=== PATIENT | female | born 1955 | race Caucasian/White ===

== ENCOUNTER 2018-08-28 06:25 | Day surgery (SDC) | payer OTHER ==
[2018-08-20 14:01] VITALS: BMI 25.5
--- NOTE | 2018-08-22 09:25 | HP ---
Admitting History and Physical - Primary Care Physician PCP: Valente Shoemaker - Admission Chief Complaint: Left breast cancer History of Present Illness: 63 year old postmenapausal female who was found to have an abnormality on screening mammogram 06/2018. A central left density persisted on compression views . US showed 5x5x3 mm irregular density left 8:00 . Us guided core BX at [facility] showed infiltrating ductal carcinoma and DCIS ER+/MT+ Her2 negative . Breast MRI right breast birad 1 , newly diagnosed left breast cancer. 07/2018. History Source: Patient Limitations to Obtaining History: No Limitations - Past Medical History Cardiovascular: Yes: HTN, Hyperlipdemia ...: No - Past Surgical History Past Surgical History: Yes: Cholecystectomy (lap 2008), Hernia Repair (ventral umbilical with mesh 1993) - Advance Directives Advance Directives: Yes: Living Will, Health Care Proxy - Smoking History Smoking history: Never smoked Have you smoked in the past 12 months: No - Alcohol/Substance Use Hx Alcohol Use: Yes (SOCIALLY) Home Medications - Allergies Allergies/Adverse Reactions: Allergies Allergy/AdvReac Type Severity Reaction Status Date / Time amoxicillin Allergy Severe Rash Verified 08/20/18 13:52 clavulanic acid Allergy Severe Rash Verified 08/20/18 13:53 [From Augmentin] - Home Medications Home Medications: Ambulatory Orders Metoprolol Succinate [Toprol Xl] 25 mg PO DAILY 08/20/18 Family Disease History - Family Disease History Family Disease History: CA: Grandparent (mat GM renal ca 54), Mother (lung ca68) Physical Examination Constitutional: Yes: Well Nourished Breast(s): Yes: Other (moderately ptotic breasts C CUP. No palpable densities or adenopathy bilaterally post bx changes left breast) Problem List - Problems (1) Breast cancer, left Code(s): C50.912 - MALIGNANT NEOPLASM OF UNSPECIFIED SITE OF LEFT FEMALE BREAST Qualifiers: Breast location: upper inner quadrant of breast Estrogen receptor status: positive Patient sex: female Qualified Code(s): C50.212 - Malignant neoplasm of upper-inner quadrant of left female breast; Z17.0 - Estrogen receptor positive status [ER+] Assessment/Plan Left breast wide excision , sentenel l node biopsy, possible axillary node disscetion, lymohoscintogrm, mammogram needle localization , possible intraop radiation
[2018-08-28] MEDS ORDERED: ISOSULFAN BLUE 10 MG/ML VIAL SQ ONE (12:01)
[2018-08-28] MEDS ORDERED: BUPIVACAINE HCL/PF 2.5 MG/ML - 30 ML VIAL IJ ONE (12:01)
[2018-08-28] MEDS ORDERED: LIDOCAINE HCL 1% PRESERVATIVE FREE - 30ML VIAL ONE (12:01)
[2018-08-28] MEDS ORDERED: fentaNYL CITRATE 250 MCG/5 ML VIAL ONE (12:43)
[2018-08-28] MEDS ORDERED: ONDANSETRON 4 MG/2 ML VIAL IVPUSH PRN ×2 (12:43→15:42)
[2018-08-28] MEDS ORDERED: KETOROLAC TROMETHAMINE 30 MG/1 ML VIAL IVPUSH PRN (12:43)
[2018-08-28] MEDS ORDERED: MIDAZOLAM HCL 2 MG/2 ML SINGLE DOSE VIAL ONE (12:44)
[2018-08-28] MEDS ORDERED: PROPOFOL 20 ML ONE ×3 (12:44)
[2018-08-28] MEDS ORDERED: DEXTROSE 5%-0.45% SALINE 1,000 ML IV SCH (12:45)
[2018-08-28] MEDS ORDERED: ceFAZolin SODIUM 1 GM VIAL ONE (13:04)
[2018-08-28] MEDS ORDERED: DEXAMETHASONE SOD PHOSPHATE 4 MG/1 ML VIAL ONE (13:04)
[2018-08-28] MEDS ORDERED: ePHEDrine SULFATE 50 MG/1 ML AMPULE ONE (14:16)
[2018-08-28] MEDS ORDERED: ONDANSETRON 4 MG/2 ML VIAL ONE (15:40)
[2018-08-28] MEDS ORDERED: oxyCODONE HCL 5 MG TABLET PO PRN ×2 (15:42)
[2018-08-28] MEDS ORDERED: PROMETHAZINE HCL 25 MG/1 ML VIAL IVPUSH PRN (15:42)
--- NOTE | 2018-08-28 15:44 | OP ---
DATE OF OPERATION: 08/28/2018 PREOPERATIVE DIAGNOSIS: Left breast cancer, central region. POSTOPERATIVE DIAGNOSIS: Left breast cancer, central region. PROCEDURES: A left breast partial mastectomy with sentinel lymph node biopsy and mammographic needle localization with intraoperative radiation and 4 x 3-cm tissue-transfer closure. ANESTHESIA: General laryngeal mask airway anesthesia. PRIMARY SURGEON: Valente Shoemaker MD ICE CREAM MACHINE OPERATOR: SYDNEY Fernández RADIATION ONCOLOGIST: Eitan Mcgowan MD COMPLICATIONS: There were no complications. INDICATIONS: Briefly, the patient is a 63-year-old, G3, P3, postmenopausal white female of descent. She has no family history of breast or ovarian cancer. Her maternal grandfather had renal cell carcinoma at age 54 and mother from small-cell carcinoma of the lung at age 68. She was found to have an abnormal mammography in June 2018 and was found to have a left breast central density on compression views. An ultrasound showed a 5 x 5 x 3-mm density in the left breast central 8 o'clock region. Ultrasound-guided core biopsy performed in July 2018 showed a low-grade, infiltrating ductal cancer which was ER/ME positive, HER2/aleksandr negative with a low KI-67. The patient was advised that undergoing a left breast partial mastectomy and sentinel lymph node biopsy after MRI showed localized disease. She was offered intraoperative radiation as part of the Target US trial and was interested and was seen by Radiation Oncology and decided to go forward with it. The patient was brought in for the procedure on August 28, 2018, and underwent a needle localization under mammographic guidance at [facility] and a lymphoscintigraphy. She was brought to the [facility] area. In the holding area, site verification was made and informed consent was obtained. DESCRIPTION OF PROCEDURE: She was brought into the operating room and laid on the OR table in the supine position. Venodynes were placed on the lower extremities prior to induction. She received a gram of Ancef prior to incision. She underwent general laryngeal mask airway anesthesia. Lymphazurin blue 3 mL was injected intradermally and peritumorally around the needle localization site and massage was instituted. The left sentinel lymph node biopsy was first performed and an incision was made just below the hair-bearing area of the left axilla and dissection was undertaken. A blue hot lymph node was found in the level I region of the left axilla with a 10-second gamma count of 3602. The second hot node was found in the level II region with a 10-second gamma count of 1215 and there were no other hot or blue nodes found. Both of these nodes were sent to Pathology in formalin for permanent section. Background count after removal of these nodes was 50. Hemostasis was achieved. The wide excision was then undertaken through a periareolar incision around the left breast nipple-areolar complex on the medial border. Dissection was undertaken around the needle localization and the breast tissue was completely removed from around the needle track with the wire in the middle of the specimen. The specimen was oriented with a long-lateral, short-superior suture and specimen radiograph showed removal of the clip in question. Separate margins were then taken on the superior, inferior, medial, lateral, deep, and anterior margins with sutures marking the biopsy cavity sides and these were all sent to Pathology as margins. Hemostasis was achieved. At this point, a 2-0 plain pursestring suture was placed around the breast tissue and a 3.5-cm device was sterilely placed in the wound. The pursestring was sutured down. Ultrasound was used to confirm placement of device more than a centimeter from the skin in all quadrants. Intraoperative radiation was then accomplished after about 15 minutes. After the radiation device was removed, hemostasis was achieved, and the wound was copiously irrigated. The breast tissue was reapproximated using 2-0 plain suture with a 3 x 4-cm tissue-transfer closure. Skin was closed using interrupted 3-0 deep dermal Vicryl suture and a running 4-0 subcuticular Biosyn suture. The axillary wound was closed in a similar fashion. Mastisol and Steri-Strips were applied over the wound. She was placed in a surgical bra postoperatively. The patient had the laryngeal mask airway tube removed at the end of the case and will be recovered in the postanesthesia care unit. She will be discharged home the same day once discharge criteria are met. She is to follow up in the office in 1 week for a wound pathology check. Again, all sponge and needle counts were correct at the end of the case and estimated blood loss was about 20 mL. Giovanni [id number]
[2018-08-28] MEDS ORDERED: PROMETHAZINE HCL 25 MG/1 ML VIAL ONE (16:20)
[2018-08-28 16:53] VITALS: TEMP 97.8
[2018-08-28 17:58] VITALS: BP 112/69; PULSE 66
--- NOTE | 2018-08-28 19:52 | OP ---
DATE OF OPERATION: 08/28/2018 PREOPERATIVE DIAGNOSIS: Left breast cancer. POSTOPERATIVE DIAGNOSIS: Left breast cancer. PROCEDURE: Post-lumpectomy intraoperative radiation therapy for left breast cancer. ATTENDING SURGEON: Valente Shoemaker MD MULTIPLE WIRE SAWYER/RADIATION ONCOLOGIST: Matthew Mcgowan MD ANESTHESIA: General. COMPLICATIONS: None. INDICATIONS: The patient is a 63-year-old woman recently diagnosed with a clinical stage IA T1A N0 M0 moderately-differentiated invasive ductal carcinoma, ER/PA positive, HER2 negative of left breast, who has elected breast conservation treatment and IORT on the [facility] registry. DESCRIPTION OF PROCEDURE: Dr. Valente Shoemaker performed left lumpectomy and sentinel lymph node biopsy which he has dictated separately. After excision of additional margins, the lumpectomy cavity was prepared and sized with a 3.7-aa-wsmaglew spherical applicator. The applicator was placed into the surgical cavity, and the surrounding breast tissues were cinched around the applicator with a Vicryl pursestring suture. I performed a clinical and ultrasound stimulation to ensure that the applicator was located within the operative bed with close apposition of the surrounding breast tissue to the surface of the applicator. Saline-soaked gauze was placed between the breast tissue and skin to maximize the separation from the applicator to the skin surface. Ultrasound measurements confirmed a minimum separation of 1.6 cm at the 12 o'clock aspect of the applicator. Shielding material was placed over the breast to reduce scatter radiation. The patient received a total dose of 20 Gy prescribed to 0 mm from the applicator surface using 50 Kv x-rays with the INTRABEAM system. Prior to treatment, the system was double checked with appropriate physics water quality manager measures. The time required for the treatment was 19 minutes 15 seconds at a dose rate of 1.041 Gy per minute. When the treatment was completed, survey of the patient and room confirmed that the INTRABEAM source was off. There were no complications or unplanned interruptions. Dr. Shoemaker removed the radiation applicator from the patient and completed the surgery. The patient will be discharged to the recovery room following the surgery. MATTHEW MCGOWAN M.D. [place]Y/[id number] cc: Valente Shoemaker MD [facility]
--- NOTE | 2018-08-31 16:15 | PATH ---
Surgical Pathology Report Patient Name: SHASHANK CASTELLANO [facility]. Rec. #: [id number] /Age/Gender: 1955 (Age: 63) / F Account: [id number] Location: [facility] AMBULATORY Taken: 08/28/2018 Received: 08/28/2018 Reported: 08/31/2018 Physicians: Valente Shoemaker M.D. Specimen(s) Received A: SENTINEL LYMPH NODE LEFT BREAST #1 B: SENTINEL LYMPH NODE LEFT BREAST #2 C: LEFT BREAST WIDE EXCISION D: LEFT BREAST SUPERIOR MARGIN E: LEFT BREAST LATERAL MARGIN F: LEFT BREAST INFERIOR MARGIN G: LEFT BREAST MEDIAL MARGIN H: LEFT BREAST DEEP MARGIN I: LEFT BREAST ANTERIOR MARGIN Clinical History Invasive Ca left central IDC Final Diagnosis A. LYMPH NODE, LEFT BREAST SENTINEL #1, EXCISION: ONE LYMPH NODE, NEGATIVE FOR METASTATIC CARCINOMA (0/1). B. LYMPH NODE, LEFT BREAST SENTINEL #2, EXCISION: ONE LYMPH NODE, NEGATIVE FOR METASTATIC CARCINOMA (0/1). C. BREAST, LEFT, WIDE EXCISION: INVASIVE DUCTAL CARCINOMA, MODERATELY DIFFERENTIATED (TUBULE SCORE: 3/3, NUCLEAR GRADE: 2/3, MITOTIC SCORE: 1/3, TOTAL SCORE: 6/9; NIKOLAS GRADE 2). INVASIVE CARCINOMA MEASURES 7 MM IN GREATEST DIMENSION, MICROSCOPICALLY. FOCAL DUCTAL CARCINOMA IN SITU (DCIS), SOLID AND CRIBRIFORM TYPE, LOW TO INTERMEDIATE NUCLEAR GRADE. SURGICAL MARGINS ARE UNINVOLVED BY CARCINOMA; INVASIVE CARCINOMA IS AT 4 MM FROM THE CLOSEST (ANTERIOR) MARGIN AND DCIS IS AT 6 MM FROM THE CLOSEST (ANTERIOR) MARGIN. SEE SPECIMENS D-I FOR FINAL MARGINS. NO LYMPHOVASCULAR INVASION IS IDENTIFIED. PRIOR BIOPSY SITE CHANGES ARE PRESENT. PATHOLOGIC STAGE (pTNM): p T1b pN0. SEE ALSO INVASIVE CARCINOMA CASE SUMMARY BELOW. D. BREAST, LEFT, SUPERIOR MARGIN, EXCISION: BENIGN BREAST TISSUE. E. BREAST, LEFT, LATERAL MARGIN, EXCISION: DUCTAL CARCINOMA IN SITU (DCIS), SOLID TYPE, LOW NUCLEAR GRADE, PRESENT IN ONE OF THREE SLIDES (1/3). THE FINAL NEW MARGIN IS UNINVOLVED BY DCIS; DCIS IS AT 1 MM FROM THE CLOSEST NEW MARGIN. F. BREAST, LEFT, INFERIOR MARGIN, EXCISION: BENIGN BREAST TISSUE. G. BREAST, LEFT, MEDIAL MARGIN, EXCISION: BENIGN BREAST TISSUE. H. BREAST, LEFT, DEEP MARGIN, EXCISION: BENIGN BREAST TISSUE. I. BREAST, LEFT, ANTERIOR MARGIN, EXCISION: BENIGN BREAST TISSUE. Comments Breast Invasive Carcinoma: Surgical Pathology Case Summary (Based on AJCC TNM 8 th edition) Procedure _X_ Excision (less than total mastectomy) Specimen Laterality _X_ Left Tumor Size _X_ Greatest dimension of largest invasive focus : 7 mm Histologic Type _X_ Invasive carcinoma of no special type (ductal, not otherwise specified) Histologic Grade (Nikolas Histologic Score) Glandular (Acinar)/Tubular Differentiation _X_ Score 3 (<10% of tumor area forming glandular/tubular structures) Nuclear Pleomorphism _X_ Score 2 Mitotic Rate _X_ Score 1 Overall Grade _X_ Grade 2 (scores of 6 or 7) Tumor Focality _X_ Single focus of invasive carcinoma Ductal Carcinoma In Situ (DCIS) _X_ DCIS is present in specimen _X_ Negative for extensive intraductal component (EIC) Margins Invasive Carcinoma Margins _X_ Uninvolved by invasive carcinoma Distance from closest margin (millimeters): 4 mm from anterior margin in wide excision C. Final anterior margin I is negative for carcinoma. DCIS Margins _X_ Uninvolved by DCIS Distance from closest margin (millimeters): 1 mm from final lateral margin E. Regional Lymph Nodes Number of Lymph Nodes with Macrometastases (>2 mm): 0 Number of Lymph Nodes with Micrometastases (>0.2 mm to 2 mm and/or >200 cells): 0 Number of Lymph Nodes with Isolated Tumor Cells (=0.2 mm and =200 cells): 0 Number of Lymph Nodes Examined: 2 Number of [place] Nodes Examined : 2 Treatment Effect _X_ No known presurgical therapy Lymphovascular Invasion _X_ Not identified Pathologic Stage Classification (pTNM, AJCC 8th Edition) Primary Tumor (Invasive Carcinoma) (pT) _X_ pT1b: Tumor >5 mm but =10 mm in greatest dimension Regional Lymph Nodes (pN) Category (pN) _X_ pN0 (sn): No regional lymph node metastasis identified or ITCs only Biomarker Studies Results of ER, KS, Her2 and Ki67 studies will be reported separately in an addendum. Electronically Signed Matilde Franco M.D. Addendum Reported: 09/03/2018 Addendum Diagnosis Results of ER , KS, Her2 (IHC) & Ki-67 studies performed on block C1 at [place], [place] ([id number] ) are as follows: ER (clone [id number] mouse monoclonal antibody by [employer]):100 % nuclear staining with strong intensity (positive). KS (clone16 mouse monoclonal antibody by [employer]): ~30 % nuclear staining with strong intensity (positive). Her2 IHC (EP3 from [employer], formerly known as [id number], using [employer] Polymer Refine detection kit):0 (negative). Ki-67:~15% (low proliferative index). Positive and negative controls (internal if applicable) show appropriate results. Formalin fixation and cold ischemic times are within current ASCO/CAP recommendations for ER, KS and Her2 testing. Matilde Franco M.D. Gross Description A. Received in formalin labeled "sentinel lymph node left breast #1," is a 1.8 x 1.0 x 0.6 cm kimbrough lymph node with attached fat. The specimen is bisected and entirely submitted in one cassette. B. Received in formalin labeled "sentinel lymph node left breast #2," is a 0.9 x 0.5 x 0.5 cm kimbrough lymph node. The specimen is bisected and entirely submitted in one cassette. C. Received in formalin, labeled "left breast wide excision," is a 6.4 x 4.5 x 2.7 cm. kimbrough-yellow, irregular, portion of fibroadipose tissue with a needle localization wire present. There is a short suture marking the superior aspect and a long suture marking the lateral aspect, per the surgeon. There is no skin present. The specimen is inked as follows: superior and lateral blue; inferior green; medial yellow; anterior red; deep black. The specimen is serially sectioned from medial to lateral. Sectioning reveals a 0.7 x 0.7 x 0.6 cm kimbrough, firm mass at 0.4 cm from the anterior margin, 0.7 cm from the inferior margin and at 0.8 cm from the deep margin. The remaining margins appear widely clear of the mass. Meal Attendant sections are submitted in 5 cassettes as follows: 1-full-face section of mass with inferior, anterior and deep margins; 2-additional mass with inferior, anterior and deep margins; 3-superior margin; 4-medial margin; 5-lateral margin. Time to formalin fixation: 13 minutes Total formalin fixation time: Approximately 28 hours. D. Received in formalin labeled "left breast superior margin," is a 3.0 x 1.6 x 0.5 cm portion of fibroadipose tissue with a suture marking the biopsy cavity side, per the surgeon. The new margin is inked blue and the specimen is serially sectioned. The specimen is entirely submitted in 2 cassettes. E. Received in formalin labeled "left breast lateral margin," is a 2.1 x 1.7 x 0.6 cm portion of fibroadipose tissue with a suture marking the biopsy cavity side, per the surgeon. The new margin is inked blue and the specimen is serially sectioned. The specimen is entirely submitted in 3 cassettes. F. Received in formalin labeled "left breast inferior margin," is a 1.8 x 1.7 x 0.7 cm portion of fibroadipose tissue with a suture marking the biopsy cavity side, per the surgeon. The new margin is inked blue and the specimen is serially sectioned. The specimen is entirely submitted in 2 cassettes. G. Received in formalin labeled "left breast medial margin," is a 2.0 x 1.7 x 0.6 cm portion of fibroadipose tissue with a suture marking the biopsy cavity side, per the surgeon. The new margin is inked blue and the specimen is serially sectioned. The specimen is entirely submitted in 2 cassettes. H. Received in formalin labeled "left breast deep margin," is a 2.0 x 1.5 x 0.6 cm portion of fibroadipose tissue with a suture marking the biopsy cavity side, per the surgeon. The new margin is inked blue and the specimen is serially sectioned. The specimen is entirely submitted in 2 cassettes. I. Received in formalin labeled "left breast anterior margin," is a 2.3 x 1.0 x 1.0 cm portion of fibroadipose tissue with a suture marking the biopsy cavity side, per the surgeon. The new margin is inked blue and the specimen is serially sectioned. The specimen is entirely submitted in 2 cassettes. DL08/29/2018 saudi08/29/2018
== END 2018-08-28 18:25 | disposition home or self-care (01) ==
LOC: FASU 06:25
PROVIDERS: ATTEND Surgery Surgical Oncology
PROC: 0HBU0ZZ Excision of Left Breast, Open Approach (ICD-10-PCS; principal; 2018-08-28 13:14)
PROC: 0JX60ZC Transfer Chest Subcutaneous Tissue and Fascia with Skin, Subcutaneous Tissue and Fascia, Open Approach (ICD-10-PCS; 2018-08-28 13:14)
DX: C50.212 Malignant neoplasm of upper-inner quadrant of left female breast (principal); Z17.0 Estrogen receptor positive status [ER+]; I10 Essential (primary) hypertension; E78.5 Hyperlipidemia, unspecified
CPT/HCPCS: 19281; 76641-TC-50; 77290; 77300; 77316; 77332; 77370-TC; 77424; 78195-TC; 88307-TC; 88342-TC; 94760; A9541; C9726